=== PATIENT | female | born 1950 | race Caucasian/White ===

== ENCOUNTER 2020-04-13 12:04 | Outpatient (CLI) | payer OTHER, MEDICARE ==
--- NOTE | 2020-04-13 16:11 | RAD ---
RIGHT KNEE FOUR VIEWS: 04/13/20 There is prominent medial joint space narrowing and large osteophytes present typical of osteoarthrit is. No fracture or joint effusion was seen. No bony destructive lesions are seen. IMPRESSION: Moderate osteoarthritis. POS: HOME
== END 2020-04-13 12:05 | disposition home or self-care (01) ==
LOC: BURRAD 12:04
PROVIDERS: ATTEND Family Medicine
DX: M17.11 Unilateral primary osteoarthritis, right knee (principal)